=== PATIENT | female | born 1985 | race Native Hawaiian/Other Pacific Islander ===

== ENCOUNTER 2017-06-22 10:21 | Outpatient (CLI) | payer BC | END 2017-06-22 22:55 | disposition home or self-care (01) | LOC: LABW 10:21 | DX: N91.2 Amenorrhea, unspecified (principal) | CPT/HCPCS: 36415; 84702 ==

== ENCOUNTER 2019-04-23 10:53 | Emergency (ER) | payer BC ==
[~2019-04-23] VITALS: Ht 162.6 cm; Wt 59.0 kg
[2019-04-23 11:01] VITALS: TEMP 98.1
[2019-04-23 11:42] LABS: PLATELET COUNT 211 K/uL (152-353)
[2019-04-23 11:54] LABS: POTASSIUM 3.2 mmol/L (3.6-5.2); SODIUM 138 mmol/L (136-145)
[2019-04-23 12:19] LABS: PARTIAL THROMBOPLASTIN TIME 22.7 SECONDS (24.5-33.6)
[2019-04-23 16:13] VITALS: BP 119/74
== END 2019-04-23 16:06 | disposition home or self-care (01) ==
LOC: ED 10:53
PROVIDERS: Hospitalist
DX: E87.6 Hypokalemia (principal); I47.1 Supraventricular tachycardia; Z3A.26 26 weeks gestation of pregnancy
CPT/HCPCS: 80053; 80320; 81000; 82550; 83735; 83880; 84484; 85027; 85610; 85730; 93005; 96360; 96372; 99284; J3475